=== PATIENT | male | born 1955 | race American Indian/Alaskan Native ===

== ENCOUNTER 2018-01-01 11:09 | Day surgery (SDC) | payer OTHER ==
[~2018-01-01 11:09] MED LIST: NACL 0.9% 1000 ML 1,000 ML IV SCH
--- NOTE | 2018-01-01 14:57 | Operative Report ---
Operative Report Operative Report: Date: 01/01/2018 Operative Report: Date of procedure: 01/01/2018 Procedure: Esophagogastroduodenoscopy with multiple mucosal biopsies. Attending physician: Jamie Chávez MD Auditor Tax: Jamie Chávez MD Indication: Patient is a 62 -year-old male who presented with a history of recurrent epigastric pain, heartburn, indigestion, nausea and vomiting. An upper endoscopy is done to assess patient, so that treatment may be directed based on the findings. Consent: Informed consent was obtained after advising the patient and family regarding nature of this procedure, its indications, potential benefits as well as possible complications including but not limited to bleeding perforation and adverse reaction to medication, infection as well as other cardiopulmonary complications. An informed written and verbal consent was then obtained after due opportunity was provided for questions and answers. Monitoring: Patient was monitored continuously with pulse oximetry and electrocardiographic recordings as well as blood pressure recordings. Vital signs remained stable throughout this procedure with no untoward events. Preoperative assessment: Patient was assessed immediately prior to this procedure for capacity to tolerate monitored anesthesia care and moderate sedation as well as general anesthesia. Patient's ASA classification is 3, Mallampati class is 2, Hyomental distance is 3. Instrument: pycon video endoscope Medications: Propofol given intravenously in divided doses. For details please refer to anesthesia records. Description of procedure: Patient was placed in the left lateral decubitus position after achieving sedation, the endoscope was introduced into the esophagus under direct vision. It was then advanced beyond the esophagus into the stomach and then beyond the stomach into the duodenum and to the second portion of the duodenum. It was subsequently withdrawn with careful inspection of all mucosal surfaces with the following findings. Findings: Patient had an irregular Z line at 44 cm. There was a small diminutive sliding hiatal hernia seen on entry into the stomach. Patient had multiple gastric antral erosions seen. Biopsies were obtained from the antrum for histopathology. Patient had multiple duodenal ulcers. In all more than 20 duodenal ulcers were seen. These measured from very small ulcers of about 0.5x0.5 cm to ulcers measuring up to 1 cm x 1 cm. All ulcers were clean based. Biopsies were obtained from the duodenum for histopathology. Impression: Irregular Z line. Diminutive sliding hiatal hernia. Severe erosive gastritis. Multiple duodenal ulcers.. Plan: Continue treatment with proton pump inhibitors. Follow pathology report. Direct additional treatment based on the pathology report. Patient will be observed clinically. Additional recommendations will be made follow-up.
--- NOTE | 2018-01-01 14:58 | Discharge Summary ---
Short Stay Discharge Plan Activity: advance as tolerated Weight Bearing Status: Weight Bear as Tolerated Diet: regular Follow up with: PRIMARY CARE, [Primary Care Provider] - 7 Days
--- NOTE | 2018-01-01 16:50 | Anesthesia Day of Surgery ---
Anesthesia Day of Surgery - Day of Surgery Patient Examined: Yes Patient H&P Reviewed: Yes Patient is NPO: Yes
--- NOTE | 2018-01-01 16:50 | Anesthesia Consultation ---
Anesthesia Consult and Med Hx Date of service: 01/01/18 - Airway Anesthetic Teeth Evaluation: Poor, Chipped ROM Head & Neck: Adequate Mental/Hyoid Distance: Adequate Mallampati Class: Class II Intubation Access Assessment: Probably Good - Pulmonary Exam CTA: Yes - Cardiac Exam Cardiac Exam: RRR - Pre-Operative Health Status ASA Pre-Surgery Classification: ASA3 Proposed Anesthetic Plan: MAC - Cardiovascular System Hx Hypertension: Yes - Central Nervous System CVA: Yes - Gastrointestinal Hx Gastroesophageal Reflux Disease: Yes - Endocrine Hx Non-Insulin Dependent Diabetes: Yes
[2018-01-01 18:59] VITALS: BP 132/79
== END 2018-01-01 11:10 | disposition home or self-care (01) ==
LOC: GIO 11:09
PROVIDERS: ATTEND Internal Medicine Gastroenterology
DX: K29.00 Acute gastritis without bleeding (principal); K29.80 Duodenitis without bleeding; K31.89 Other diseases of stomach and duodenum; K26.9 Duodenal ulcer, unspecified as acute or chronic, without hemorrhage or perforation; K44.9 Diaphragmatic hernia without obstruction or gangrene; K21.9 Gastro-esophageal reflux disease without esophagitis; I10 Essential (primary) hypertension; E11.9 Type 2 diabetes mellitus without complications; J45.909 Unspecified asthma, uncomplicated; Z87.891 Personal history of nicotine dependence; Z79.84 Long term (current) use of oral hypoglycemic drugs; Z86.73 Personal history of transient ischemic attack (TIA), and cerebral infarction without residual deficits
CPT/HCPCS: 82962; 88305; 88342

== ENCOUNTER 2018-01-15 10:26 | Day surgery (SDC) | payer OTHER ==
[2018-01-15] MEDS: NACL 0.9% 1000 ML 1,000 ML IV SCH ×2 (12:34→14:59)
[2018-01-15] MEDS ORDERED: DIPRIVAN 10 MG/ML IV ONE ×2 (13:50)
--- NOTE | 2018-01-15 13:56 | Anesthesia Day of Surgery ---
Anesthesia Day of Surgery - Day of Surgery Patient Examined: Yes Patient H&P Reviewed: Yes Patient is NPO: Yes Beta Blockers: No
--- NOTE | 2018-01-15 13:57 | Anesthesia Consultation ---
Anesthesia Consult and Med Hx - Airway Anesthetic Teeth Evaluation: Good ROM Head & Neck: Adequate Mental/Hyoid Distance: Adequate Mallampati Class: Class III Intubation Access Assessment: Probably Good - Pulmonary Exam CTA: Yes - Cardiac Exam Cardiac Exam: No Murmur - Pre-Operative Health Status ASA Pre-Surgery Classification: ASA3 - Cardiovascular System Hx Hypertension: Yes - Central Nervous System CVA: Yes - Gastrointestinal Hx Gastroesophageal Reflux Disease: Yes - Endocrine Hx Non-Insulin Dependent Diabetes: Yes
[2018-01-15] MEDS ORDERED: NACL 0.9% 100 ML ONE (15:40)
[2018-01-15 16:18] VITALS: BP 176/92
--- NOTE | 2018-01-15 16:59 | Discharge Summary ---
Short Stay Discharge Plan Activity: advance as tolerated Weight Bearing Status: Weight Bear as Tolerated Diet: regular Additional Instructions: Post Sedation D/C Instructions When you return home you may resume your regular diet unless otherwise directed. -Go directly home from the hospital and rest quietly. You may resume normal activities tomorrow. -Do NOT drive, return to work, operate any machinery or make any important personal or business decisions today. -Do NOT drink any alcohol or take nerve or sleeping drugs. They add to the effects of the medicine still present in your body. Follow up with Dr. Chávez in 2 weeks to obtain pathology results and treatment plan. High Fiber Diet Repeat Colonoscopy recommended in 3 months due to poor prep. Follow up with: BABAR GUTIÉRREZ MD [Primary Care Provider] - 7 Days
--- NOTE | 2018-01-15 16:59 | Operative Report ---
Operative Report Operative Report: Date of procedure: 01/15/2018 Procedure: Colonoscopy with Snare polypectomy, Submucosal Injection Multiple Hot Biopsy Polypectomies. Attending physician: Jamie Chávez MD Board Of Directors: Jamie Chávez MD Indication: Patient is a 62-year-old male who presents for screening colonoscopy. Patient had a recent history of blood in stool and also progressive constipation. This colonoscopy serves to evaluate patient so that treatment may be directed based on the findings. Consent: Informed consent was obtained after advising the patient and family regarding nature of this procedure, its indications, potential benefits as well as possible complications including but not limited to bleeding perforation and adverse reaction to medication, infection as well as other cardiopulmonary complications. An informed written and verbal consent was then obtained after due opportunity was provided for questions and answers. Monitoring: Patient was monitored continuously with pulse oximetry and electrocardiographic recordings as well as blood pressure recordings. Vital signs remained stable throughout this procedure with no untoward events. Preoperative assessment: Patient was assessed immediately prior to this procedure for capacity to tolerate monitored anesthesia care and moderate sedation as well as general anesthesia. Patient's ASA classification is 2, Mallampati class is 2, Hyomental distance is 3. Instrument: Quartixn video colonoscope Medications: Propofol given intravenously in divided doses. For details please refer to anesthesia records. Description of procedure: Patient was placed in the left lateral decubitus position after achieving sedation, a digital rectal examination was performed following which the colonoscope was introduced into the anal verge and advanced to the cecum which was identified by the cecal valve, the appendiceal orifice, as well as by the cecal strap and direct transillumination. The colonoscope was subsequently withdrawn with careful inspection of all mucosal surfaces. Patient tolerated this procedure well and was subsequently taken to the recovery room. The following findings were noted. Findings: The preparation was poor with substantial retained stool in the ascending colon cecum and in the transverse colon. Also in the descending colon patient had some thick liquid stool. Patient had a broad-based 2.5 cm sessile polyp in the ileocecal valve/cecum. This was elevated with submucosal injection. Subsequently, the polyp was removed piecemeal. The base of the polyp was then ablated. In the proximal ascending colon, patient had 2 sessile polyps each measuring approximately 7-8 mm. Both polyps were removed by hot biopsy polypectomy and retrieved. In the transverse colon, patient had another sessile polyp which was again removed by hot biopsy polypectomy. The rest of the colon to the cecum was normal except for poor preparation and substantial retained stool. On the retroflex view at the anal verge, patient had internal hemorrhoids. Impression: Cecal polyp, status post submucosal injection and snare polypectomy. Ascending colon polyps status post hot biopsy polypectomy Transverse colon polyp status post hot biopsy polypectomy Retained stool. Internal hemorrhoids. Plan: Follow pathology report. High-fiber diet. Repeat colonoscopy in 3 months because of the cecal polyp and poor prep. If however the pathology report suggests invasive cancer from 2.5 cm cecal polyp, or if the pathology shows any degree of dysplasia, patient will need resection of the cecum and ileocecal valve.
== END 2018-01-15 10:27 | disposition home or self-care (01) ==
LOC: GIO 10:26
PROVIDERS: ATTEND Internal Medicine Gastroenterology
DX: D12.2 Benign neoplasm of ascending colon (principal); D12.0 Benign neoplasm of cecum; D12.3 Benign neoplasm of transverse colon; K64.8 Other hemorrhoids; I10 Essential (primary) hypertension; K21.9 Gastro-esophageal reflux disease without esophagitis; E11.9 Type 2 diabetes mellitus without complications; Z86.73 Personal history of transient ischemic attack (TIA), and cerebral infarction without residual deficits
CPT/HCPCS: 45381; 45384; 45388; 82962; 88305; J2704; J7030